=== PATIENT | female | born 1940 | race Caucasian/White ===

== ENCOUNTER 2016-05-22 17:46 | Emergency (ER) | payer OTHER ==
[~2016-05-22] VITALS: Ht 147.3 cm; Wt 46.4 kg
[2016-05-22 18:05] LABS: POINT-OF-CARE METER ID UU13113778
[2016-05-22 19:07] LABS: ADD MIUA? NO; BILIRUBIN NEGATIVE; BLOOD NEGATIVE; COLOR STRAW ((YELLOW)); GLUCOSE (STRIP) NEGATIVE; KETONES NEGATIVE; LEUKOCYTES NEGATIVE; NITRITE NEGATIVE; PROTEIN (STRIP) NEGATIVE; SPECIFIC GRAVITY 1.006 (1.000-1.030); UCUL ADDED? NO; UROBILINOGEN 0.2 MG/DL (0.2-1.0)
[2016-05-22 19:09] LABS: HEMATOCRIT 36.8 % (36.0-46.0); MCH 28.9 PG (29.0-34.0); MCHC 33.4 G/DL (30.0-36.0); MCV 86.6 FL (83-99); MEAN PLAT.VOLUME 8.8 uM^3 (9.5-12.4); PLATELET COUNT 314 K/uL (156-360); RBC DIS.WIDTH-CV 13.5 % (11.8-14.6); RBC DIS.WIDTH-SD 41.9 % (39-53); RED BLOOD COUNT 4.25 M/uL (3.80-5.20); WHITE BLOOD COUNT 6.8 K/uL (4.1-10.2)
[2016-05-22 19:23] LABS: CHLORIDE 103 mEq/L (99-109); POTASSIUM 3.5 mEq/L (3.7-5.4); SODIUM 138 mEq/L (136-147)
[2016-05-22 19:25] LABS: GLUCOSE 117 mg/dL (70-99)
[2016-05-22 19:26] LABS: ANION GAP 9 MEQ/L (2-14)
[2016-05-22 19:27] LABS: TOTAL BILIRUBIN 0.3 mg/dL (0.0-1.0)
[2016-05-22 19:29] LABS: ALKALINE PHOSPHATASE 58 IU/L (3-129); GFR ESTIMATE (CALCULATED) > 59 mL/min/
[2016-05-22 19:30] LABS: UREA NITROGEN (BUN) 12 mg/dL (9-23)
[2016-05-22 19:32] LABS: LIPASE 11 U/L (1.0-51.0)
[2016-05-22 20:35] LABS: INFLUENZA A VIRAL ANTIGEN NEGATIVE; INFLUENZA B VIRAL ANTIGEN NEGATIVE
[2016-05-22 21:29] VITALS: BP 166/65
== END 2016-05-22 21:32 | disposition home or self-care (01) ==
LOC: EME 17:46
PROVIDERS: Physician Assistant
DX: R68.83 Chills (without fever) (principal); R42 Dizziness and giddiness; R53.1 Weakness
CPT/HCPCS: 80053; 81003; 82948; 83690; 85027; 87502; 99281; 99285